=== PATIENT | male | born 1975 | race Caucasian/White ===

== ENCOUNTER 2024-05-26 20:46 | Emergency (ER) | payer OTHER, SELFPAY ==
[2024-05-26] VITALS (8 sets, daily range): BP systolic 116–132; BP diastolic 70–77; PULSE 90–122; RESP 18–24; TEMP 37–38.3; O2SAT 96–98; BMI 29.4
--- NOTE | 2024-05-26 21:35 | DI.CT.S_ITS ---
PROCEDURE: CT SOFT TISSUE NECK W CON INDICATIONS: R EAR CARTILAGE SWELLING DOWN TO THROAT TECHNIQUE: After the administration of intravenous contrast, 3.0 mm axial sections acquired from the sella to the aortic arch. Additional oblique axial 3.0 mm sections acquired through the pharynx. 3 mm thick coronal and sagittal reformats were generated. For radiation dose reduction, the following was used: automated exposure control. COMPARISON: None. FINDINGS: Image quality: Excellent. Lymph nodes: No enlarged lymph nodes seen throughout the neck. Sub 6 mm lymph nodes are seen in bilateral neck soft tissue. Vessels: Visualized vasculature appears patent. Neck spaces: There is diffuse tonsillar enlargement causing narrowing of the nasal pharyngeal airway and upper oral pharyngeal airway. No discrete soft tissue mass or drainable fluid collection is noted. The vocal cords, false vocal cords, pyriform sinuses, epiglottis, vallecula, and tongue base all appear normal. Extramucosal spaces appear unremarkable. Glands: Right parotid gland and submandibular gland are slightly more prominent in size compared to the left side with slightly increased density particularly in right parotid gland. No discrete calcifications or drainable fluid collection seen within the parotid gland or submandibular gland. Thyroid gland is within normal limits. Miscellaneous: Visualized brain and orbits appear normal. Lung apices appear clear. Right periauricular subcutaneous soft tissue edema and fat stranding is seen with mild skin thickening in this area. No discrete soft tissue abscess collection is noted. Bones: No suspicious bony lesions. Visualized sinuses and mastoids appear unremarkable. IMPRESSION: 1. Finding is concerning for parapharyngeal tonsillitis with mild narrowing of the nasopharyngeal and upper oral pharyngeal airway. No discrete tonsillar abscess collection. 2. Nonspecific mild cellulitis involving right periauricular soft tissue. No discrete soft tissue abscess collection. No abnormal soft tissue calcifications. 3. Questionable asymmetric enlargement of right parotid gland and possibly right submandibular gland with increased density compared to the left side which may represent infectious or inflammatory process. No abnormal calcification or abscess collection. 4. No enlarged lymph nodes are seen in neck soft tissue. Slight asymmetrically prominent right neck soft tissue lymph nodes measures all below 6 mm in diameter and may be reactive in nature. Dictated by: Alhaji Dobson M.D. on 05/26/2024 at 22:38 Approved by: Alhaji Dobson M.D. on 05/26/2024 at 22:45
--- NOTE | 2024-05-26 21:35 | ED_ITS ---
HPI - Fever General Chief Complaint: Fever Stated Complaint: rt jaw infection Time Seen by Provider: 05/26/24 21:08 Source: patient Mode of arrival: Ambulatory History of Present Illness HPI Narrative: 48yoM with PMH gout, seborrheic dermatitis presents by private vehicle from home for 1 day of R ear pain, fever, slight sore throat. Patient states he suspects he may have a dental infection, since something similar happened a few years ago on the other side of his face. Patient also states that he is in the middle of a seborrheic dermatitis flare and has some excoriations where his glasses sit on his R ear. Has been on selenium sulfate shampoo without improvement. 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 Related Data Previous Rx's Medication Instructions Recorded ciprofloxacin HCl 750 mg tablet 750 mg PO Q12H #14 tabs 05/27/24 Patient History Social History Smoking Status: Never smoker Smoking Status: Never smoker alcohol intake frequency: 0-2 drinks per day Substance Use Type: does not use Exam Initial Vital Signs Initial Vital Signs: Vital Signs Temperature 101 F H 05/26/24 20:58 Pulse Rate 122 H 05/26/24 20:58 Respiratory Rate 18 05/26/24 20:58 Blood Pressure 132/77 05/26/24 20:58 Pulse Oximetry 98 05/26/24 20:58 Oxygen Delivery Method Room Air 05/26/24 20:58 Const: Awake, alert, no acute distress, nontoxic appearing HEENT: R ear perichondritis. R TM normal. L ear normal. Mild pharyngeal erythema without edema or exudates. Cardiac: tachycardia, regular rhythm RESP: unlabored, clear bilaterally, no wheezing Skin: Warm, Dry, intact, seborrheic dermatitis on scalp near ears. Neuro: AO x3, CN II-XII grossly intact, moves all extremities Course Orders Ordered: Discontinued Medications Ciprofloxacin (Ciprofloxacin 250 Mg Tablet) 750 mg PO NOW ONE Stop: 05/26/24 23:20 Last Admin: 05/26/24 23:28 Dose: 750 mg Documented By: GEO Dexamethasone (Dexamethasone 10 Mg/Ml Vial) 10 mg IV NOW ONE Stop: 05/26/24 22:52 Last Admin: 05/26/24 23:06 Dose: 10 mg Documented By: GEO Sodium Chloride (Normal Saline 0.9%) 1,000 mls @ 1,000 mls/hr IV BOLUS ONE Stop: 05/26/24 22:34 Last Infusion: 05/26/24 23:03 Dose: Infused Documented By: Admin: 05/26/24 21:57 Dose: 1,000 mls/hr Documented By: GEO Ketorolac Tromethamine (Ketorolac 30 Mg/Ml Vial) 15 mg IV NOW ONE Stop: 05/26/24 21:36 Last Admin: 05/26/24 21:57 Dose: 15 mg Documented By: GEO Vital Signs Vital signs: Vital Signs - 8 hr 05/26/24 20:58 05/26/24 21:09 05/26/24 21:16 Temperature 101 F H Pulse Rate 122 H 117 H 116 H Respiratory Rate 18 21 Blood Pressure 132/77 Pulse Oximetry 98 96 98 Oxygen Delivery Method Room Air Room Air 05/26/24 21:16 05/26/24 21:30 05/26/24 22:00 Temperature Pulse Rate 114 H 102 H Respiratory Rate 20 21 Blood Pressure 132/77 Pulse Oximetry 98 97 Oxygen Delivery Method Room Air 05/26/24 22:24 05/26/24 22:24 05/26/24 22:30 Temperature 98.6 F Pulse Rate 97 H 94 H Respiratory Rate 20 18 Blood Pressure 121/71 Pulse Oximetry 97 97 Oxygen Delivery Method Room Air 05/26/24 22:30 05/26/24 23:00 05/26/24 23:00 Temperature Pulse Rate 90 Respiratory Rate 24 Blood Pressure 117/70 116/71 Pulse Oximetry 98 Oxygen Delivery Method 05/27/24 00:17 05/27/24 00:17 Temperature Pulse Rate 85 Respiratory Rate Blood Pressure 130/81 Pulse Oximetry 98 Oxygen Delivery Method MDM - Fever Lab Data 05/26/24 21:30 05/26/24 21:30 Labs: Lab Results 05/26/24 05/26/24 05/26/24 Range/Units 21:30 21:50 23:30 WBC 9.3 (4.5-11.0) X10^3/uL RBC 4.40 L (4.5-5.9) X10^6/uL Hgb 14.1 (13.5-17.5) g/dL Hct 39.5 L (41-53) % MCV 89.7 (80-100) fL MCH 32.0 (26-34) PG MCHC 35.7 (30-36) % RDW 13.7 (11.6-14.8) % Plt Count 165 (150-400) X10^3/uL Neut % (Auto) 86.6 H (50-75) % Lymph % (Auto) 5.9 L (25-40) % [place] % (Auto) 7.2 (3-14) % Eos % (Auto) 0.1 L (2-4) % Baso % (Auto) 0.2 (0-2) % Neut # (Auto) 8100 H (3270-6424) /uL Lymph # (Auto) 600 L (3202-4627) /uL [place] # (Auto) 700 (0-900) /uL Eos # (Auto) 0 (0-450) /uL Baso # (Auto) 0 (0-100) /uL Sodium 131 L (137-145) mmol/L Potassium 3.9 (3.4-5.1) mmol/L Chloride 103 (98-107) mmol/L Carbon Dioxide 20 L (22-32) mmol/L BUN 11 (9-20) mg/dL Creatinine 1.27 H (0.66-1.25) mg/dL Estimated GFR > 60 (>60) mL/min BUN/Creatinine Ratio 8.7 (6-22) Glucose 120 H (70-100) mg/dL Lactate 0.9 (0.7-2.1) mmol/L Calcium 9.2 (8.4-10.2) mg/dL Total Bilirubin 0.8 (0.2-1.3) mg/dL AST 29 (17-59) IU/L ALT 26 (<50) IU/L Alkaline Phosphatase 94 (38-126) U/L Total Protein 7.5 (6.3-8.2) g/dL Albumin 4.2 (3.5-5.0) g/dL Globulin 3.3 (1.7-4.1) g/dL Albumin/Globulin Ratio 1.3 (1.0-2.8) Procalcitonin 0.150 (<0.5) ng/mL Chlamy pneumoniae PCR Not detected (Not Detect) Adenovirus (PCR) Not detected (Not Detect) B. pertussis DNA (PCR) Not detected (Not Detect) B.parapertussis DNA PCR Not detected (Not Detecte) Coronavirus OC43 (PCR) Not detected (Not Detect) Coronavirus HKU1 (PCR) Not detected (Not Detect) Coronavirus 229E (PCR) Not detected (Not Detect) SARS-CoV-2 (PCR) Not detected (Not Detecte) Coronavirus NL63 (PCR) Not detected (Not Detect) Human Metapneumovir PCR Not detected (Not Detect) Influenza Type A (PCR) Not detected (Not Detect) Influenza Type B (PCR) Not detected (Not Detect) M. pneumoniae (PCR) Not detected (Not Detect) Parainfluenza 1 (PCR) Not detected (Not Detect) Parainfluenza 2 (PCR) Not detected (Not Detect) Parainfluenza 3 (PCR) Not detected (Not Detect) Parainfluenza 4 (PCR) Not detected (Not Detect) RSV (PCR) Not detected (Not Detect) Entero/Rhino (PCR) Not detected (Not Detect) Group A Strep (PCR) Negative (Negative) MDM Narrative Medical decision making narrative: Nontoxic appearing patient with perichondritis, but also some symptoms including neck and throat pain. Possible dental infection. Patient does have some erythema of his cartilage consistent with what appears to be perichondritis. However, since we can not rule out dental abscess or tracking infection a CT neck soft tissue with contrast will be ordered. Patient denies history of kidney problems, Toradol and IV fluids ordered for fever and discomfort Laboratory work reviewed, WBC count 9.3, hemoglobin 14.1, platelets 165, sodium 131, potassium 3.9, creatinine 1.27, GFR greater than 60, normal liver enzymes, procalcitonin 0.150. CT neck soft tissues show parapharyngeal tonsillitis. Mild narrowing of the nasopharyngeal and upper oral airway noted, however on exam patient's airway is patent, he was no voice changes, no signs or symptoms of airway narrowing. Possibility noted of right parotid gland enlargement and right neck soft tissue lymph nodes. Patient was given a dose of Decadron for pharyngitis. Respiratory panel negative for common pathogens. Patient informed of all lab and imaging findings as well as presumptive diagnosis of perichondritis. Started on ciprofloxacin for Pseudomonas coverage. Patient was only in [place] for several more days, so antibiotics sent to pharmacy of choice. Patient was counseled on ED return precautions when he continues his trip. Discharge Plan Departure Patient Disposition: Home Clinical Impression: Perichondritis, Tonsillopharyngitis Instructions: DI for Cellulitis -- Adult, DI for Pharyngitis/Tonsillopharyngitis -- Adult Activity Restrictions/Additional Instructions: The redness of your outer ear appears to be something called perichondritis, which is infection of the cartilage of the outer ear. In addition, your CT scan shows that you have some irritation and inflammation of your tonsils and throat, however your laboratory work it was reassuring that this is not a bloodstream infection or bacterial infection. Finish all of the antibiotics as prescribed for the cartilage infection. At home take tylenol and ibuprofen as needed for pain. Drink plenty of fluids. Ice can also be lightly applied to the ear for pain control. Prescriptions: New ciprofloxacin HCl 750 mg tablet 750 mg PO Q12H Qty: 14 0RF Stand Alone Forms: Patient Portal/API
[2024-05-26 21:43] LABS: Add Manual Diff / Slide Review NO; Basophils Absolute Auto 0 /uL (0-100); Basophils Percent Auto 0.2 % (0-2); Eosinophils Absolute Auto 0 /uL (0-450); Eosinophils Percent Auto 0.1 % (2-4); Hematocrit 39.5 % (41-53); Hemoglobin 14.1 g/dL (13.5-17.5); Lymphocytes Absolute Auto 600 /uL (1100-4500); Lymphocytes Percent Auto 5.9 % (25-40); Mean Corpuscular HGB Conc 35.7 % (30-36); Mean Corpuscular Volume 89.7 fL (80-100); Monocytes Absolute Auto 700 /uL (0-900); Monocytes Percent Auto 7.2 % (3-14); Neutrophils Absolute Auto 8100 /uL (1500-7000); Neutrophils Percent Auto 86.6 % (50-75); Platelet Count 165 X10^3/uL (150-400); Red Cell Distribution Width 13.7 % (11.6-14.8); White Blood Cell Count 9.3 X10^3/uL (4.5-11.0)
[2024-05-26 21:55] LABS: Alanine Aminotransferase 26 IU/L (<50); Albumin 4.2 g/dL (3.5-5.0); Albumin Globulin Ratio 1.3 (1.0-2.8); Alkaline Phosphatase 94 U/L (38-126); Aspartate Aminotransferase 29 IU/L (17-59); BUN Creatinine Ratio 8.7 (6-22); Bilirubin Total 0.8 mg/dL (0.2-1.3); Blood Urea Nitrogen 11 mg/dL (9-20); Calcium 9.2 mg/dL (8.4-10.2); Carbon Dioxide 20 mmol/L (22-32); Chloride 103 mmol/L (98-107); Estimated Glomerular Filt Rate > 60 mL/min (>60); Globulin 3.3 g/dL (1.7-4.1); Glucose 120 mg/dL (70-100); HEMOLYSIS 18 (0-50); Potassium 3.9 mmol/L (3.4-5.1); Sodium 131 mmol/L (137-145); Total Protein 7.5 g/dL (6.3-8.2)
[2024-05-26 21:56] LABS: Lactate (Lactic Acid) 0.9 mmol/L (0.7-2.1)
[2024-05-26] MEDS: SODIUM CHLORIDE 0.9% 1,000 ML 1000 ML IV (21:57)
[2024-05-26] MEDS: KETOROLAC 30 MG/ML VIAL 15 MG IV (21:57)
[2024-05-26 22:55] LABS: Adenovirus Not Detected (Not Detect); B. parapertussis Not Detected (Not Detecte); Bordetella pertussis Not Detected (Not Detect); Chlamydophila pneumoniae Not Detected (Not Detect); Coronavirus 229E Not Detected (Not Detect); Coronavirus HKU1 Not Detected (Not Detect); Coronavirus NL 63 Not Detected (Not Detect); Coronavirus OC43 Not Detected (Not Detect); Human Metapneumovirus Not Detected (Not Detect); Human Rhinovirus/Enterovirus Not Detected (Not Detect); Influenza A Not Detected (Not Detect); Influenza B Not Detected (Not Detect); Mycoplasma pneumoniae Not Detected (Not Detect); Parainfluenza Virus 1 Not Detected (Not Detect); Parainfluenza Virus 2 Not Detected (Not Detect); Parainfluenza Virus 3 Not Detected (Not Detect); Parainfluenza Virus 4 Not Detected (Not Detect); Respiratory Syncytial Virus Not Detected (Not Detect); SARS- CoV-2 Not Detected (Not Detecte)
[2024-05-26] MEDS: DEXAMETHASONE 10 MG/ML VIAL IV (23:06)
[2024-05-26] MEDS: CIPROFLOXACIN 250 MG TABLET 750 MG PO (23:28)
[2024-05-26 23:57] LABS: Strep Grp A by PCR Rapid Negative (Negative)
[2024-05-27 00:17] VITALS: BP 130/81; PULSE 85; O2SAT 98
== END 2024-05-27 00:29 | disposition home or self-care (01) ==
PROVIDERS: Emergency Provider Emergency Medicine
DX: H61.011 Acute perichondritis of right external ear (principal); J02.9 Acute pharyngitis, unspecified; R50.9 Fever, unspecified; R79.89 Other specified abnormal findings of blood chemistry; Z11.52 Encounter for screening for COVID-19
CPT/HCPCS: 70491; 80053; 83605; 84145; 85025; 87633; 87651; 96361; 96374; 96375; 99284; J1100; J1885; Q9967

== ENCOUNTER 2024-05-29 11:08 | Emergency (ER) | payer OTHER, SELFPAY ==
[2024-05-29 11:20] VITALS: BP 154/95; PULSE 109; RESP 16; TEMP 36.9; O2SAT 100; BMI 29.4
--- NOTE | 2024-05-29 11:34 | PC.NURSE ---
patient denies fever today. his heart rate is normally high and has been checked by cards in the past with a 24h monitor. he normally runs around 115 on exertion and is slow to lower his HR while at rest. He also states that he has scalp fungal infections and right eye skin issue which causes his eye to become red. He speculates that his new swelling may be fungal in origin due to a susceptibility and also that he has a fungal infection in his scalp which causes dry cracked skin that may have allowed the fungus to get in.
--- NOTE | 2024-05-29 12:16 | ED_ITS ---
HPI - Recheck/Abnormal Lab/Rx <Jason Flores PA-C - Last Filed: 05/29/24 12:22> General Chief Complaint: Recheck/Abnormal Lab/Rx Stated Complaint: f/u on infection, sent by [facility] Time Seen by Provider: 05/29/24 11:26 Source: patient Mode of arrival: Ambulatory History of Present Illness HPI narrative: This patient is a 48-year-old male that presents today for the 2nd time this week for a perichondritis of the right ear. The patient was placed on ciprofloxacin in which he was having some improvement but apparently has returned back to its normal state. 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 The patient denies any discharge from the area, dentalgia symptoms, neck pain, chest pain or shortness of breath. Also denies headache or blurred vision. The patient is otherwise tolerating ciprofloxacin. He also denies decreased hearing or tinnitus. Initial onset was approximately 3 days ago. Related Data Previous Rx's Medication Instructions Recorded ciprofloxacin HCl 750 mg tablet 750 mg PO Q12H #14 tabs 05/27/24 dexamethasone 2 mg tablet 2 mg PO BID #14 tabs 05/29/24 doxycycline hyclate 100 mg tablet 100 mg PO BID #20 tabs 05/29/24 Allergies Allergy/AdvReac Type Severity Reaction Status Date / Time No Known Drug Allergies Allergy Verified 05/29/24 11:23 Review of Systems <Jason Flores PA-C - Last Filed: 05/29/24 12:22> Review of Systems Narrative: General: See HPI Integumentary: See HPI All other review of systems have been reviewed and ultimately negative unless otherwise stated in the HPI. Patient History <Jason Flores PA-C - Last Filed: 05/29/24 12:22> Social History Smoking Status: Never smoker Smoking Status: Never smoker alcohol intake frequency: 0-2 drinks per day Substance Use Type: does not use Exam <Jason Flores PA-C - Last Filed: 05/29/24 12:22> Initial Vital Signs Initial Vital Signs: Vital Signs Temperature 98.4 F 05/29/24 11:20 Pulse Rate 109 H 05/29/24 11:20 Respiratory Rate 16 05/29/24 11:20 Blood Pressure 154/95 H 05/29/24 11:20 Pulse Oximetry 100 05/29/24 11:20 Oxygen Delivery Method Room Air 05/29/24 11:20 Const General: cooperative, healthy appearing and comfortable [facility] Head: normal to inspection, normocephalic and atraumatic Ears: hearing grossly normal bilaterally, TM's normal bilaterally and EAC's normal Eyes General: Yes appearance normal, both eyes and all related structures Alignment and Position: alignment normal Periorbital: periorbital findings normal Eyelids: eyelids normal Conjunctivae: conjunctivae normal Pupils: PERRL and normal by confrontation EOM: EOM intact bilaterally Neck Neck: normal visual inspection, full ROM and no meningeal signs Resp Effort & Inspection: normal respiratory effort and able to speak in complete sentences Cardio Rate: regular rate Rhythm: regular rhythm Heart Sounds: S1 normal and S2 normal Back/Spine/Pelvis Back: normal to inspection Skin Other: Patient has cellulitic changes of the right pinna indicative of possible perichondritis. No evidence of abscess or spontaneous purulent discharge noted. No lymphangitic streaking. Neuro Cranial Nerves: CN's II-XI intact bilaterally Extrem General: normal to inspection and full ROM Psych Appearance: grossly normal and well kempt <Sonya Haynes DO - Last Filed: 06/03/24 04:48> Initial Vital Signs Initial Vital Signs: Vital Signs Temperature 98.4 F 05/29/24 11:20 Pulse Rate 109 H 05/29/24 11:20 Respiratory Rate 16 05/29/24 11:20 Blood Pressure 154/95 H 05/29/24 11:20 Pulse Oximetry 100 05/29/24 11:20 Oxygen Delivery Method Room Air 05/29/24 11:20 Course <Jason Flores PA-C - Last Filed: 05/29/24 12:22> Course Course Narrative: This patient appears to have continuing signs and symptoms of perichondritis. We will discontinue ciprofloxacin start the patient on doxycycline as well as dexamethasone. There is no evidence of abscess formation as well as EAC or TM involvement. The patient does not have any palpable pain along the sternocleidomastoid on the right. I do not believe this is a deep space abscess. He is not febrile. He appears clinically stable for outpatient follow-up at this time. I also do not believe this is mastoiditis since the patient does not have any tenderness over the mastoid area. Patient understands this treatment plan. No additional questions at the time of discharge he will follow up as required With a [facility] repack room worker and his PCP. Orders Ordered: Discontinued Medications Diphtheria/Tetanus/Acell Pertussis (Tet,Diph,Pertuss(Acell),Vac/Pf 0.5 Ml Syringe) 0.5 ml IM .ONCE ONE Stop: 05/29/24 12:16 Last Admin: 05/29/24 12:22 Dose: 0.5 ml Documented By: RLS Vital Signs Vital signs: Vital Signs - 8 hr 05/29/24 11:20 Temperature 98.4 F Pulse Rate 109 H Respiratory Rate 16 Blood Pressure 154/95 H Pulse Oximetry 100 Oxygen Delivery Method Room Air <Sonya Haynes DO - Last Filed: 06/03/24 04:48> Orders Ordered: Discontinued Medications Diphtheria/Tetanus/Acell Pertussis (Tet,Diph,Pertuss(Acell),Vac/Pf 0.5 Ml Syringe) 0.5 ml IM .ONCE ONE Stop: 05/29/24 12:16 Last Admin: 05/29/24 12:22 Dose: 0.5 ml Documented By: RLS Vital Signs Vital signs: Vital Signs - 8 hr 05/29/24 11:20 Temperature 98.4 F Pulse Rate 109 H Respiratory Rate 16 Blood Pressure 154/95 H Pulse Oximetry 100 Oxygen Delivery Method Room Air Discharge Plan Departure Patient Disposition: Home Clinical Impression: Perichondritis Instructions: Doxycycline Activity Restrictions/Additional Instructions: Contact [facility] to reach out to one of their repack room worker Discontinue ciprofloxacin as previously prescribed Start the new medications today Keep the affected area clean and dry Return here if worse Prescriptions: New doxycycline hyclate 100 mg tablet 100 mg PO BID Qty: 20 0RF dexamethasone 2 mg tablet 2 mg PO BID Qty: 14 0RF No Action ciprofloxacin HCl 750 mg tablet 750 mg PO Q12H Qty: 14 0RF Referrals: Miscellaneous,Doctor, MD [Primary Care Provider] - Stand Alone Forms: Patient Portal/API ED Sign-out <Sonya Haynes DO - Last Filed: 06/03/24 04:48> Cosign ED Attending Alleyature Attestation: I was immediately available in the department for consultation.
[2024-05-29] MEDS: TET,DIPH,PERTUSS(ACELL),VAC/PF 0.5 ML SYRINGE IM (12:22)
[2024-05-29 12:25] VITALS: BP 148/85; PULSE 87; RESP 14; O2SAT 99
== END 2024-05-29 12:31 | disposition home or self-care (01) ==
PROVIDERS: Emergency Provider Physician Assistant
DX: H61.001 Unspecified perichondritis of right external ear (principal); Z23 Encounter for immunization
CPT/HCPCS: 36415; 90471; 99283; 90715